=== PATIENT | female | born 1945 | race African-American/Black ===

== ENCOUNTER 2018-08-26 04:18 | Emergency (ER) | payer OTHER ==
[~2018-08-26] VITALS: Ht 152.4 cm; Wt 113.4 kg
[~2018-08-26 04:18] MED LIST: ATEN50TA; FLUT250M9; GABA300C10; LOSA-49; LOSA100T30; METF-370; SITA50TA
[2018-08-26 08:46] VITALS: BP 175/91
[2018-08-26] MEDS ORDERED: cloNIDine HCL 0.1 MG TAB PO ONE (09:00)
== END 2018-08-26 09:21 | disposition home or self-care (01) ==
LOC: ER 04:18
DX: J32.9 Chronic sinusitis, unspecified (principal); L29.9 Pruritus, unspecified; J45.909 Unspecified asthma, uncomplicated; E11.9 Type 2 diabetes mellitus without complications; E78.5 Hyperlipidemia, unspecified; I10 Essential (primary) hypertension; Z90.710 Acquired absence of both cervix and uterus
CPT/HCPCS: 70450